=== PATIENT | female | born 1935 | race African-American/Black ===

== ENCOUNTER 2018-08-26 13:49 | Observation (INO) ==
[2018-08-26 17:57] LABS: BASO# 0.02 X1000 (0.0-0.2); BASO% 0.2 % (0.0-0.8); EOS% 0.9 % (0.0-10.0); HEMATOCRIT 45.9 % (37.0-47.0); IMM GRAN# 0.04 X1000 (0.0-0.04); IMM GRAN% 0.4 % (0.0-0.5); LYMPH# 1.89 X1000 (1.2-3.4); LYMPH% 16.8 % (20.5-51.1); MCH 30.2 PG (27-31); MCHC 32.7 g/dL (33-37); MCV 92.5 FL (81-99); MONO# 0.98 X1000 (0.11-0.59); MONO% 8.7 % (1.7-9.3); MPV 9.6 FL (7.4-10.4); NEUT# 8.21 X1000 (1.4-6.5); PLT 270 X1000 (130-400); RBC 4.96 XMIL (4.2-5.4); RDW 13.6 % (11.5-14.5); WBC 11.24 X1000 (4.8-10.8)
[2018-08-26 17:58] LABS: URINE SOURCE CLEAN CATCH
[2018-08-26 18:07] LABS: BILIRUBIN URINE NEGATIVE (NEGATIVE); BLOOD URINE TRACE (NEGATIVE); COLOR YELLOW; GLUCOSE URINE NEGATIVE (NEGATIVE); KETONE URINE NEGATIVE (NEGATIVE); LEUKOCYTES URINE LARGE (NEGATIVE); NITRITE URINE POSITIVE (NEGATIVE); PH URINE 5.5; PROTEIN URINE TRACE mg/dL (NEGATIVE); SP GRAVITY URINE 1.012; TURBIDITY URINE CLEAR (CLEAR); UR EPITHELIAL CELLS <10 /HPF (<10); URINE BACTERIA 4+ /HPF; URINE RBC <10 /HPF (<10); URINE WBC 20-40 /HPF (<10); UROBILINOGEN URINE NORMAL (NORMAL)
[2018-08-26 18:25] LABS: ALB/GLOB RATIO 1.2; ALBUMIN 3.9 g/dL (3.5-5.0); CALCIUM 9.3 mg/dL (8.8-10.2); CREATININE 1.6 mg/dL (0.5-0.9); POTASSIUM 4.4 mmol/L (3.5-5.1); TOTAL BILIRUBIN 0.66 mg/dL (0.20-1.00); TOTAL PROTEIN 7.1 g/dL (6.3-8.3)
--- NOTE | 2018-08-26 18:56 | PROVIDER DOCUMENTATION ---
This chart was entered by Renetta Martines Scribe, acting as scribe for Christopher Emerson MD. HPI-Abdominal Pain/GI Problem - General Source: patient - History of Present Illness-ABD Nature of Presenting Problems: Patient is a 83 year old female who presents with generalized abdominal pain that started last night. Denies nausea and vomiting. Abdominal Pain Onset Location: reports: generalized abdomen Pain Radiation: reports: no radiation Quality of Pain: reports: aching Severity in ED: reports: mild Onset/Duration: reports: last night Timing: reports: still present Activities at Onset: reports: light activity Modifying Factors: improves with: nothing Associated Symptoms: reports: denies symptoms Bruising or Bleeding Gums?: No Similar Symptoms Previously?: Yes Recently seen or treated by another doctor?: No <Christopher Emerson - Last Filed: 08/26/18 18:55> <Vero Arguello - Last Filed: 08/26/18 22:25> - General Chief Complaint: Abdominal Pain Stated Complaint: ABD PAIN Time Seen by Provider: 08/26/18 17:17 Allergies/Adverse Reactions: Patient Allergies Allergy/AdvReac Type Severity Reaction Status Date / Time pentazocine lactate * Allergy Severe AMS Verified 10/12/16 18:19 [From [facility]] Home Medications: Home Medication List Medication Instructions Recorded Confirmed Last Taken Type ATORVAstatin [Lipitor] 40 mg PO DAILY 05/09/13 08/26/18 08/29/16 21:00 History Aspirin [Ecotrin] 325 mg PO QAM 05/09/13 08/26/18 09/02/16 History Metoprolol Succinate [Toprol Xl] 75 mg PO QAM 05/09/13 08/26/18 09/05/16 08:22 History Amlodipine Besylate 5 mg PO DAILY 09/03/16 08/26/18 09/05/16 08:22 History Benazepril HCl 10 mg PO DAILY 08/26/18 08/26/18 Unknown History Bismuth Subsalicylate [Maalox] 525 mg PO DAILY 08/26/18 08/26/18 Unknown History Fluticasone 50 Mcg Nasal [place] 1 spray INTRANASAL DAILY 08/26/18 08/26/18 Unknown History [Flonase] Isosorbide Mononitrate E.r. [Imdur] 60 mg PO DAILY 08/26/18 08/26/18 Unknown History Levocetirizine Dihydrochloride 5 mg PO DAILY 08/26/18 08/26/18 Unknown History Montelukast Sodium [Singulair] 5 mg PO DAILY 08/26/18 08/26/18 Unknown History Prednisone [[place]] 5 mg PO DAILY 08/26/18 08/26/18 Unknown History Review of Systems - Adult - REVIEW OF SYSTEMS - ADULT Constitutional: reports: no symptoms reported. denies: chills, fever, fatique Eyes: reports: no symptoms reported Ears, Nose, Mouth & Throat: reports: no symptoms reported Cardiovascular: reports: no symptoms reported Respiratory: reports: no symptoms reported Gastrointestinal: reports: see HPI, abdominal pain (generalized). denies: diarrhea, nausea, vomiting Genitourinary: reports: no symptoms reported. denies: dysuria, hematuria, urinary retention Musculoskeletal: reports: no symptoms reported Integumentary: reports: no symptoms reported Neurological: reports: no symptoms reported Psychiatric: reports: no symptoms reported Endocrine: reports: no symptoms reported Hematologic/Lymphatic: reports: no symptoms reported Allergic/Immunologic: reports: no symptoms reported All Other Systems: Reviewed and Negative <Christopher Emerson - Last Filed: 08/26/18 18:55> Past History - Adult - PAST MEDICAL HISTORY-ADULT Review of Records: reports: Old Records Reviewed, Nursing Assessment Review, Medications Reviewed, Social history reviewed & non-contributory. Major Childhood Illnesses: reports: denies history Cardiovascular: reports: CAD, HTN, hyperlipidemia Respiratory: reports: denies history Gastrointestinal: reports: denies history Obstetrical/Gynecological: reports: denies history Genitourinary: reports: kidney disease Musculoskeletal: reports: denies history Neurological: reports: denies history Endocrine/Immune: reports: denies history Other Conditions: reports: other (gout ) - PRIOR SURGERIES/PROCEDURES Surgical/Procedure History: reports: orthopedic (extremity) - IMMUNIZATION STATUS Childhood Immunizations: See Nurse Assessment Flu Vaccine: See Nurse Assessment - FAMILY HISTORY Family History: reviewed, not pertinent - SOCIAL HISTORY Smoking: denies Substance Use: denies <Christopher Emerson - Last Filed: 08/26/18 18:55> Physical Exam-General - PHYSICAL EXAM-ADULT Initial Vital Signs Reviewed: Yes - CONSTITUTIONAL General Appearance: alert, no apparent distress. negative: slow to respond - HEAD, EARS, NOSE, MOUTH & THROAT HENMT: normocephalic/atraumatic, moist mucous membranes. negative: angioedema - RESPIRATORY Respiratory: chest non-tender, lungs clear, normal breath sounds. negative: crackles, stridor - CARDIOVASCULAR Cardiovascular: normal peripheral pulses, regular rate, rhythm. negative: tachycardia - GASTROINTESTINAL (ABDOMEN) Abdominal Exam: normal bowel sounds, soft, tenderness (diffuse), hernia (ventral wall hernia to RUQ). negative: guarding - MUSCULOSKELETAL Extremity: normal inspection. negative: deformity, erythema - SKIN Integumentary: normal color, normal turgor, warm/dry. negative: cyanosis, ecchymosis, erythema, jaundice - NEUROLOGIC Neurologic: grossly normal. negative: aphasia, facial droop - PSYCHIATRIC Psych/Mental Status: normal mood/affect, oriented x 3. negative: anxious <Christopher Emerson - Last Filed: 08/26/18 18:55> Progress - PLAN OF CARE/RESULTS Progress/Plan/Lab Results: Vital Signs - 8 hr 08/26/18 14:04 Temperature 97.9 F Pulse Rate 79 Respiratory Rate 18 Blood Pressure 142/77 O2 Sat by Pulse Oximetry 97 Orders Category Date Time Status CT ABD/PELVIS W/IV CONT ONLY [CT] Stat Exams 08/26/18 17:28 Ordered CBC WITH ELECTRONIC DIFF [HEME] Stat Lab 08/26/18 17:17 Uncollected CMP [COMPREHENSIVE METABOLIC PANEL] [CHEM] Stat Lab 08/26/18 17:17 Uncollected URINALYSIS W/POSS RFLX CULT [URINALYSIS] Stat Lab 08/26/18 17:17 Uncollected Result Diagrams: 08/26/18 17:50 08/26/18 17:50 - CHANGE OF SHIFT REPORT (ED Provider) 1 Report Given and Care Transferred to:: Dr Arguello Time of Transfer: 19:00 Items Pending: CT/MRI Results <Christopher Emerson - Last Filed: 08/26/18 18:55> - PLAN OF CARE/RESULTS Progress/Plan/Lab Results: Laboratory Results - last 24 hr 08/26/18 08/26/18 08/26/18 17:30 17:50 17:50 WBC 11.24 H RBC 4.96 Hgb 15.0 Hct 45.9 MCV 92.5 MCH 30.2 MCHC 32.7 L RDW Std Deviation 13.6 Plt Count 270 MPV 9.6 Immature Gran % (Auto) 0.4 Neut % (Auto) 73.0 Lymph % (Auto) 16.8 L [place] % (Auto) 8.7 Eos % (Auto) 0.9 Baso % (Auto) 0.2 Immature Gran # (Auto) 0.04 Neut # (Auto) 8.21 H Lymph # (Auto) 1.89 [place] # (Auto) 0.98 H Eos # (Auto) 0.10 Baso # (Auto) 0.02 Sodium 138 Potassium 4.4 Chloride 100 Carbon Dioxide 28 Anion Gap 10 BUN 23 H Creatinine 1.6 H Estimated GFR/1.73 m2 37 BUN/Creatinine Ratio 14 Glucose 90 Calculated Osmolality 279 Calcium 9.3 Total Bilirubin 0.66 AST 12 ALT 7 L Alkaline Phosphatase 109 H Total Protein 7.1 Albumin 3.9 Globulin 3.2 Albumin/Globulin Ratio 1.2 Urine Source CLEAN CATCH Urine Color YELLOW Urine Turbidity CLEAR Urine pH 5.5 Ur Specific [place] 1.012 Urine Protein TRACE A Ur Glucose (Stick) NEGATIVE Ur Ketones (Stick) NEGATIVE Urine Blood TRACE A Urine Nitrite POSITIVE A Urine Bilirubin NEGATIVE Urobilinogen Dipstick NORMAL Urine Leukocytes LARGE A Urine WBC (Auto) 20-40 A Urine RBC (Auto) <10 U Epithel Cells (Auto) <10 Urine Bacteria (Auto) 4+ Orders Category Date Time Status CT ABDOMEN/PELVIS W/O CONTRAST [CT] Stat Exams 08/26/18 18:49 Completed CBC WITH ELECTRONIC DIFF [HEME] Stat Lab 08/26/18 17:50 Completed CMP [COMPREHENSIVE METABOLIC PANEL] [CHEM] Stat Lab 08/26/18 17:50 Completed URINALYSIS W/POSS RFLX CULT [URINALYSIS] Stat Lab 08/26/18 17:30 Completed URINE CULTURE [RM] Routine Lab 08/26/18 18:34 Received Morphine Med 08/26/18 20:41 Discontinued 4 mg .ROUTE .STK-MED ONE Morphine Med 08/26/18 20:38 Discontinued 4 mg IV NOW ONE Ondansetron [Zofran] Med 08/26/18 20:41 Discontinued 4 mg .ROUTE .STK-MED ONE Ondansetron [Zofran] Med 08/26/18 20:38 Discontinued 4 mg IV NOW ONE Patient signed out to me pending CT scan. CT showing partial small bowel obstruction. No active vomiting. Spoke to Dr Venegas health information technologist for surgery, states patient can be DC home and followup with him outpatient or can be admitted to hospitalist and he will consult. If she is admitted if she is not vomiting no NGT is needed. Patient is not vomiting in the ED so held off NGT. Spoke to patient and family and they feel more comfortable being admitted. Spoke to Dr Constantino who accepted patient for admission. Further orders to be placed by [facility] team. Result Diagrams: 08/26/18 17:50 08/26/18 17:50 - CT/MRI 1 CT Study: Abdomen (EXAM: CT ABDOMEN/PELVIS W/O CONTRAST 08/26/2018 HISTORY: ABDOMINAL PAIN TECHNIQUE: This exam was performed using automated exposure control, adjustment of mA or kV according to patient size, and/or use of iterative reconstruction technique. COMMENT: The current study is compared with 05/28/2018. The visualized portions of the chest are unchanged in appearance. 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 There is a small hiatal hernia. The spleen is not enlarged. There is nephrolithiasis without evidence of hydronephrosis on the left. There is no evidence of right-sided hydronephrosis. The infrarenal abdominal aorta is slightly distended to a maximum AP diameter of 2.8 cm. This is not changed significantly. There is a ventral hernia containing small bowel with dilatation of the afferent loop. This was not the case on the previous study. There is a moderately large amount of stool in the colon. There is diverticulosis in the sigmoid colon without evidence of active diverticulitis. There is no evidence of free fluid. There has been previous hysterectomy. The ovaries are stable in appearance. There are some degenerative disc and facet changes present in the lumbar spine with apparent spinal stenosis at L3-4. There is no evidence of acute bony abnormality. IMPRESSION: Partial obstruction of the proximal small bowel due to ventral hernia. Electronically signed by Yuriy Colon 08/26/2018 7:11 PM) - CONSULTS/PCP/HOSPITALIST Notification #1 *Consult/PCP/Hospitalist*: Dr Venegas Time Discussed: 21:15 (Patient can either go home with outpatient followup with him or be admitted to hospitalist for OBS and he will consult. No NGT needed if not vomiting) Time Discussed: 21:30 (Accepted patient for admission) Reason/Comments: Dr Constantino Consult Disposition: Admit <Vero Arguello - Last Filed: 08/26/18 22:25> Departure - Departure Date of Disposition Decision: 08/26/18 <Christopher Emerson - Last Filed: 08/26/18 18:55> - Departure Time of Disposition Decision: 22:21 Certified Medical Emergency: Emergent - Critical Care Note This patient required my direct & personal management of CC.: No <Vero Arguello - Last Filed: 08/26/18 22:25> - Departure DIAGNOSIS: Small bowel obstruction UTI (urinary tract infection) Qualifiers: Urinary tract infection type: acute cystitis Disposition: ADMITTED INPATIENT 09 Condition: Stable Referrals and Follow-Ups: Claudia Vasques MD [Primary Care Provider] - Attestation - Physician/ HOLLIE Attestation The physician spent face to face time with patient:: Yes Advanced Practice Provider documentation review:: Supervising physician onsite and consulted in the evaluation and care of this patient. The physician did have a face to face encounter with the patient. <Christopher Emerson - Last Filed: 08/26/18 18:55> This chart was documented by the indicated scribe, (Renetta Martines Scribe) and accurately reflects the services I performed and decisions made by me, Christopher Emerson MD, as attested by the provider's signature.
--- NOTE | 2018-08-26 19:13 | Diag Imaging Result Doc PS360 ---
EXAM: CT ABDOMEN/PELVIS W/O CONTRAST 08/26/2018 HISTORY: ABDOMINAL PAIN TECHNIQUE: This exam was performed using automated exposure control, adjustment of mA or kV according to patient size, and/or use of iterative reconstruction technique. COMMENT: The current study is compared with 05/28/2018. The visualized portions of the chest are unchanged in appearance. 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 There is a small hiatal hernia. The spleen is not enlarged. There is nephrolithiasis without evidence of hydronephrosis on the left. There is no evidence of right-sided hydronephrosis. The infrarenal abdominal aorta is slightly distended to a maximum AP diameter of 2.8 cm. This is not changed significantly. There is a ventral hernia containing small bowel with dilatation of the afferent loop. This was not the case on the previous study. There is a moderately large amount of stool in the colon. There is diverticulosis in the sigmoid colon without evidence of active diverticulitis. There is no evidence of free fluid. There has been previous hysterectomy. The ovaries are stable in appearance. There are some degenerative disc and facet changes present in the lumbar spine with apparent spinal stenosis at L3-4. There is no evidence of acute bony abnormality. IMPRESSION: Partial obstruction of the proximal small bowel due to ventral hernia. Electronically signed by Yuriy Colon 08/26/2018 7:11 PM
[2018-08-26] MEDS ORDERED: ZOFRAN IV ONE (20:38)
[2018-08-26] MEDS ORDERED: MORPHINE IV ONE (20:38)
[2018-08-26] MEDS ORDERED: ZOFRAN ONE (20:41)
[2018-08-26] MEDS ORDERED: MORPHINE ONE (20:41)
[2018-08-26] MEDS ORDERED: DULCOLAX PR ONE (22:45)
--- NOTE | 2018-08-26 23:40 | HISTORY AND PHYSICAL ---
CHIEF COMPLAINT: Abdominal pain. HISTORY OF PRESENT ILLNESS: Ms. Borja is a very pleasant 83-year-old female who was alert and oriented times 3, unable to answer all questions. She developed abdominal pain generalized last night. Denied any nausea, vomiting. Stated she had not had a bowel movement in around a day and a half. She is usually very regular with bowel movements daily. She has a past medical history of coronary artery disease, hypertension, hyperlipidemia, gout, chronic kidney disease. CT scan was obtained in the emergency room and it does show partial small bowel obstruction. ER spoke with Dr. Venegas, who was log operations coordinator for Surgery. He stated that it was okay for them to discharge her home and follow up outpatient. However, the family was uncomfortable with that. She will be admitted in observation status for further evaluation and treatment. PAST MEDICAL HISTORY: See HPI. PREVIOUS SURGICAL HISTORY: Hernia repair, ovary removal, colonoscopy. SOCIAL HISTORY: She is single. Retired from [employer]. No alcohol or cigarette use. However, she does dip snuff daily. No illicit drugs. FAMILY HISTORY: Hypertension in parents and 1 daughter with fibromyalgia, an additional daughter who at age 49 from myocardial infarction who also had lupus. ALLERGY: Talwin. HOME MEDICATIONS: Aspirin 325 p.o. daily, atorvastatin 40 mg p.o. daily, metoprolol 75 mg p.o. q.a.m., amlodipine 5 mg p.o. daily, benazepril 10 mg p.o. daily, Maalox 525 mg p.o. daily, Flonase 50 mcg daily, Imdur 60 mg p.o. daily, Singulair 5 mg p.o. daily, prednisone 5 mg p.o. daily. REVIEW OF SYSTEMS: Fourteen point review of systems conducted with the patient. Pertinent positives listed above in HPI. All other systems reviewed and found to be negative. PHYSICAL EXAMINATION: VITAL SIGNS: Temperature 97.9, pulse 79, respirations 18, blood pressure 142/77, O2 saturation 97% on room air. GENERAL: Pleasant 83-year-old female lying in the ER stretcher, answers all questions appropriately. She is alert and oriented times 3. HEENT: Head is atraumatic, normocephalic. Pupils equal, round, reactive to light. Extraocular eye movement is intact. Sclerae are anicteric. Conjunctiva is pink. Oral mucosa is moist. NECK: Supple. No JVD. No thyromegaly. Trachea is midline. No cervical lymphadenopathy. CARDIAC: S1, S2 appreciated. No murmurs, gallops or rubs. LUNGS: Clear to auscultation bilaterally. No rhonchi, wheezes, rales. Symmetric rise and fall with respirations. ABDOMEN: Protuberant, soft, mildly distended. Reducible hernia noted on the right side of the abdomen. Bowel sounds hypoactive all 4 quadrants. EXTREMITIES: No clubbing, cyanosis or edema. Bilateral feet are cool to touch. One-plus pedal pulses. GENITOURINARY: No bladder distention. Patient voids. Otherwise deferred. NEUROLOGICAL: Alert and oriented times 3. No focal motor deficits. Otherwise nonfocal examination. DIAGNOSTIC DATA: CT of the abdomen shows a partial small bowel obstruction. LABORATORY DATA: WBC 11.24. Hemoglobin 15. Hematocrit 45.9. Platelet count 270. BUN 23. Creatinine 1.6. Urine is nitrite positive, leukocyte esterase positive, 20-40 WBCs, 4-plus bacteria. ASSESSMENT AND PLAN: 1. Partial small bowel obstruction. Consult Dr. Venegas. Normal saline IV overnight. We will give a suppository, reshoot a flat and upright x-ray tomorrow around noon. Patient is having no nausea or vomiting. No need for NG tube at this time. We will give morphine as needed for pain, Zofran as needed for nausea. 2. Urinary tract infection. One gram of Rocephin IV daily. 3. Hypertension. Continue home medication. 4. Hyperlipidemia. Continue home medication. 5. Chronic kidney disease stage 3. This is stable. Further recommendation per patient clinical course. Dictated by NADEEN Bonilla for Jcarlos Constantino MD cc: NADEEN Bonilla MD Lindsay Smith Independent exam and assessment done by me at bedside with MBA INTERN and discussed the above plan with him and patient. If abd. X ray films are inconclusive and patient still has not had a BM, consider doing a UGI w SBFT tomorrow. MTDD
[2018-08-27] MEDS ORDERED: ZOFRAN IV PRN (00:21)
[2018-08-27] MEDS ORDERED: NS 1,000 ML IV SCH (00:21)
[2018-08-27] MEDS: ROCEPHIN 1 GM in NS 50 ML IV SCH (01:19)
[2018-08-27] MEDS: LOVENOX SUBQ SCH (01:20)
[2018-08-27] MEDS: MORPHINE IV PRN ×3 (02:48→16:41)
[2018-08-27 07:14] LABS: CALCIUM 9.2 mg/dL (8.8-10.2); CREATININE 1.7 mg/dL (0.5-0.9); POTASSIUM 4.3 mmol/L (3.5-5.1)
[2018-08-27] MEDS ORDERED: PNEUMOVAX 23 IM ONE (07:43)
--- NOTE | 2018-08-27 08:20 | GENERAL SURGERY CONSULTATION ---
DATE: 08/27/2018 HISTORY OF PRESENT ILLNESS: Ms. Del Castillo is a pleasant, 83-year-old, female, who reports admission yesterday because of abdominal pain from a hernia. She says she has not eaten anything in the past 3 days. She denies nausea or vomiting, just complains about some abdominal pain. She does have a past history of coronary artery disease. She apparently has seen Dr. Kelley for this. PAST MEDICAL HISTORY: She has a history of hypertension, hyperlipidemia, gout, and some chronic renal insufficiency. MEDICATIONS: Her medications at home include aspirin, atorvastatin, metoprolol, amlodipine, benazepril, Maalox, Flonase, Imdur, Singulair, and prednisone. ALLERGIES: She has an allergy to [place]. PAST SURGICAL HISTORY: She has had a previous hysterectomy, a previous laparotomy for a bowel obstruction. She has had previous endoscopies. FAMILY HISTORY: Pertinent for hypertension, coronary artery disease, and lupus. SOCIAL HISTORY: She is single. She is retired. She denies alcohol or smoking. REVIEW OF SYSTEMS: Primarily related to her abdominal pain from a hernia. Denies other subsystem problems. PHYSICAL EXAMINATION: Vital Signs: She is afebrile. Heart rate 63, blood pressure 136/65. Neck: No cervical adenopathy. Lungs: Bilateral breath sounds. Heart: Regular rate and rhythm. Abdomen: Soft. A hernia is palpated. It is not reducible. It is mildly tender. Extremities: She does have pedal pulses. Neurologic: She is awake, alert, and oriented. LABORATORY DATA: White count was 11,000 yesterday. BUN 19, creatinine 1.7 today. Her urine was nitrite positive. ASSESSMENT: She appears to have an incarcerated epigastric hernia, now with some small bowel in it. It does not appear to be strangulated. We will allow her to have liquids today. If she does not tolerate them, then we will proceed with ventral hernia repair while she is here. If she does, then perhaps she can come back and schedule as an outpatient. Will follow along with serial abdominal exams. cc: Andrez Venegas MD
[2018-08-27] MEDS ORDERED: PREDNISONE PO SCH (09:00)
[2018-08-27] MEDS ORDERED: MAALOX PLUS LIQUID PO SCH (09:00)
[2018-08-27] MEDS: TOPROL XL PO SCH (09:40)
[2018-08-27] MEDS: LOTENSIN PO SCH (09:42)
[2018-08-27] MEDS: IMDUR PO SCH (09:42)
[2018-08-27] MEDS: ZYRTEC PO SCH (09:42)
[2018-08-27] MEDS: LIPITOR PO SCH (09:43)
[2018-08-27] MEDS: SINGULAIR PO SCH (09:43)
[2018-08-27] MEDS: ASPIRIN EC PO SCH (09:43)
[2018-08-27] MEDS: NORVASC PO SCH (09:44)
--- NOTE | 2018-08-27 12:07 | Diag Imaging Result Doc PS360 ---
EXAM: FLAT/UPRIGHT ABD/1 VIEW CHEST HISTORY: partial SBO TECHNIQUE: Flat and upright with chest, three views COMPARISON: 11/22/2016 FINDINGS: The lungs are well expanded and clear. The left hemidiaphragm is elevated similar to the prior exam. No cardiomegaly. No free air beneath the diaphragm. No bowel obstruction. The bowel loops are nondilated. No organomegaly. Mild scoliosis. IMPRESSION: Mild constipation, but no evidence of bowel obstruction. Electronically signed by Ubaldo Rivas 08/27/2018 12:04 PM
[2018-08-27] MEDS ORDERED: MAALOX PLUS LIQUID PO PRN (14:40)
[2018-08-27] MEDS: MIRALAX PO SCH ×2 (14:54→22:21)
[2018-08-27] MEDS: DULCOLAX PR SCH ×2 (14:55→22:21)
--- NOTE | 2018-08-27 17:25 | PROGRESS NOTE ---
DATE: 08/27/2018 INTERVAL HISTORY: Ms. Del Castillo was admitted for partial small bowel obstruction. She was given bisacodyl suppositories at nighttime. She did have a small bowel movement. She has been tolerating a liquid diet well. She denies any chest pain or shortness of breath. Abdominal pain has significantly decreased. She states that she has not been using prednisone and she wanted me to discontinue it. She states she has been having increasing nocturia recently, but no burning. VITAL SIGNS: Temperature 98.1 degrees, pulse 72, respiratory rate 18, blood pressure 120/60, saturating 96% room air. PHYSICAL EXAMINATION: General: Morbidly obese, not in any acute distress. HEENT: Oral cavity has some chicken broth, otherwise moist. Lungs: Air entry bilaterally equal. No wheeze, rhonchi, or crackles. Cardiovascular: S1, S2 normal. No murmur, rub, or gallop. Abdomen: Soft. There is a ventral hernia and multiple scars of previous laparotomy and hysterectomy. Her hernia is only mildly tender and it is about 10 cm below the xiphoid sternum. Active bowel sounds. Extremities: No lower extremity edema. Neurologic: She is alert oriented x3. Able to follow commands. Able to raise both upper and lower extremities. Input and output: The bowel movements have not been recorded. However, she tells me that she did have a bowel movement. LABORATORY: BMP suggestive of chronic kidney disease stage 3. TSH was within normal limits. She does have pyuria and urine culture is in the lab. X-RAY IMAGING: Today morning suggest mild constipation without any evidence of bowel obstruction. ASSESSMENT AND PLAN: 1. Partial small bowel obstruction in the setting of ventral hernia without any nausea or vomiting, now improving. Continue aggressive bowel regimen, clear liquid diet. Surgery on board. If she does not get better, she may need surgery. However, currently she is improving. Continue morphine as needed for abdominal pain. 2. Acute urinary tract infection, likely lower urinary tract infection. Continue intravenous ceftriaxone. Follow up with final urine culture results. 3. Others. History of coronary artery disease, managed medically. Continue home aspirin, atorvastatin, metoprolol. 4. Essential hypertension. Continue home benazepril, amlodipine. 5. Disposition. The patient remains inside the hospital as we await urine culture results, as well as resumption of her bowel activity. Plan of care discussed with the patient and her daughter at bedside. All of their questions have been answered. cc: Sina Odonnell MD
--- NOTE | 2018-08-27 20:18 | PROGRESS NOTE ---
DATE: 08/27/2018 INTERVAL HISTORY: She had a small bowel movement. She was admitted for partial small bowel obstruction. She has been tolerating clear liquid diet well. Patient's daughter is at bedside. Patient denies any new complaints. PHYSICAL EXAMINATION: Vital Signs: Temperature 98.7 degrees, pulse 65, respiratory rate 18, blood pressure 115/64, saturating 96% on room air. General: Morbidly obese, not in acute distress. Oral Cavity: Moist. Lungs: Air entry bilaterally equal. No wheeze, rhonchi, crackles. Heart: S1, S2 normal. No murmur or gallop. Abdomen: Soft, nontender. Ventral hernia palpable. Mild tenderness. Active bowel sounds. Extremities: No lower extremity edema. LABS: Suggestive of normal electrolytes with creatinine of 1.7 in chronic kidney disease stage 3 range. No microbiological data except urine culture which is gram-negative marya. ASSESSMENT: 1. Acute partial small bowel obstruction. 2. Acute cystitis due to gram-negative marya. 3. Essential hypertension. 4. History of coronary artery disease without any percutaneous intervention. 5. Chronic kidney disease stage 3. PLAN: 1. Continue clear liquid diet. 2. Intensify bowel regimen. 3. Surgery on board. 4. I will continue her home medications for benazepril, aspirin, atorvastatin, and amlodipine for essential hypertension. 5. I will continue intravenous ceftriaxone for urinary tract infection. 6. I will await final urine culture results and resumption of her bowel movements. Based on that, I will consider disposition. 7. Plan of care discussed with the patient and her daughter at bedside. cc: Sina Odonnell MD
[2018-08-28] MEDS: MORPHINE IV PRN ×2 (00:39→09:05)
[2018-08-28] MEDS: LOVENOX SUBQ SCH (00:40)
[2018-08-28] MEDS: ROCEPHIN 1 GM in NS 50 ML IV SCH (00:40)
[2018-08-28] MEDS: ASPIRIN EC PO SCH (07:59)
[2018-08-28] MEDS: IMDUR PO SCH (07:59)
[2018-08-28] MEDS: NORVASC PO SCH (07:59)
[2018-08-28] MEDS: MIRALAX PO SCH (07:59)
[2018-08-28] MEDS: DULCOLAX PR SCH (07:59)
[2018-08-28] MEDS: TOPROL XL PO SCH (07:59)
[2018-08-28] MEDS: LOTENSIN PO SCH (08:00)
[2018-08-28] MEDS: LIPITOR PO SCH (08:00)
[2018-08-28] MEDS: ZYRTEC PO SCH (08:00)
[2018-08-28] MEDS: SINGULAIR PO SCH (08:00)
[2018-08-28 12:16] VITALS: BP 120/58
--- NOTE | 2018-08-28 20:39 | GENERAL SURGERY PROGRESS NOTE ---
DATE: 08/28/2018 SUBJECTIVE: Ms. Del Castillo is taking liquids okay. Her bowels had moved. I think it is completely appropriate to allow her to be discharged. She is welcome to follow up with me in the office and we can discuss further ventral hernia repair. She understands and agrees. cc: Andrez Venegas MD
--- NOTE | 2018-08-29 13:41 | DISCHARGE SUMMARY ---
ADMISSION DATE: 08/26/2018 DISCHARGE DATE: 08/28/2018 DISCHARGE DISPOSITION: Home with family. DISCHARGE CONDITION: Alert, oriented x3. The patient has been tolerating liquid diet. Has not had any nausea or vomiting. Has had multiple bowel movements. Her abdominal pain has significantly decreased. DISCHARGE INSTRUCTIONS: She should continue stool softeners to have 2 soft bowel movements every day. She should complete treatment of urinary tract infection. She should schedule an appointment with Dr. Venegas in 7 days and discuss about elective ventral hernia repair surgery. DISCHARGE DIAGNOSES: 1. Acute partial small bowel obstruction due to incarcerated ventral hernia. 2. Acute cystitis due to Klebsiella pneumoniae. 3. Essential hypertension. 4. Constipation. OTHER DIAGNOSES: 1. History of coronary artery disease without any percutaneous intervention. 2. Chronic kidney disease stage 3. 3. Essential hypertension. 4. Morbid obesity. 5. Hyperlipidemia. DISCHARGE MEDICATIONS: Amlodipine 5 mg daily, benazepril 10 mg daily, aspirin 325 mg every morning, fluticasone nasal spray 1 spray daily, isosorbide mononitrate 60 mg extended release daily, levocetirizine 5 mg daily, atorvastatin 40 mg daily, montelukast 5 mg daily, metoprolol succinate 75 mg every morning time, cephalexin 250 mg every 6 hours, 20 capsules have been prescribed, tramadol 50 mg every 8 hours, 15 tablets have been prescribed for abdominal pain. Bisacodyl 10 mg per rectal b.i.d., 30 suppositories have been prescribed, MiraLAX 17 g p.o. b.i.d. 30 powders have been prescribed. VITALS: At the time of discharge, temperature 97.8 degrees, pulse 62, respiratory rate 18, blood pressure 170/70. She is saturating 99% on room air. PHYSICAL EXAMINATION: Morbidly obese, not in acute distress. Oral cavity is moist. Air intake bilaterally equal. No wheeze, rhonchi, or crackles. S1, S2 normal. No murmur or gallop. Abdomen: Soft. She has a ventral hernia, only mildly tender. Otherwise, active bowel sounds. No lower extremity edema. She is alert and oriented x3. Nonfocal examination. SIGNIFICANT LABS: During hospital. WBC 11,000, hemoglobin 15, platelet 270,000. At the time of discharge, sodium 140, potassium 4.3, BUN 19, creatinine 1.7. TSH 2.6.. Urine culture was growing Klebsiella pneumoniae which was sensitive to cephalexin. IMAGING: Abdomen pelvis CT on admission had partial obstruction of proximal small bowel due to ventral hernia. Abdominal x-ray the next day had mild constipation without any evidence of bowel obstruction. HOSPITAL COURSE SUMMARY: Ms. Del Castillo is an 83-year-old woman with past medical history of obesity, who came in on 08/25/2018 with chief complaints of abdominal pain and not having bowel movement for approximately 2 days. In the emergency room, CT scan of the abdomen and pelvis had suggested partial small bowel obstruction because of incarcerated ventral hernia. She also had abdominal tenderness. Surgery was consulted and currently had recommended liquid diet and bowel regimen. On bowel regimen and liquid diet, the patient has had multiple bowel movements. Her abdominal pain has decreased and she was tolerating liquid diet well. It was decided to discharge the patient on bowel regimen to have outpatient surgery followup for elective repair. The patient was also complaining of nocturia during hospital admission and urinalysis of her was suggestive of a Klebsiella urinary tract infection. She was discharged on cephalexin. Detailed discharge instructions were provided to the patient. More than 30 minutes were spent in discharging this patient. cc: Sina Odonnell MD MTDD
== END 2018-08-28 12:40 | disposition home or self-care (01) ==
LOC: ED 13:49 → INTOOBSV 23:39 → SUATTDRO 23:39 → 4N 23:39
PROVIDERS: ATTEND Internal Medicine
CPT/HCPCS: 74022; 74176; 80048; 80053; 81001; 84443; 85025; 87077; 87088; 87186; A9270; J0696; J1650; J2270; J2405; J7030; J7506; J7512

== ENCOUNTER 2018-10-20 05:39 | Day surgery (SDC) ==
[2018-10-12 11:08] LABS: HEMATOCRIT 44.2 % (37.0-47.0); HEMOGLOBIN 14.5 g/dL (12.0-16.0); MCH 30.5 PG (27-31); MCHC 32.8 g/dL (33-37); MCV 93.1 FL (81-99); MPV 9.6 FL (7.4-10.4); RBC 4.75 XMIL (4.2-5.4); RDW 13.6 % (11.5-14.5); WBC 8.93 X1000 (4.8-10.8)
--- NOTE | 2018-10-12 11:16 | EKG Report ---
Test Performed on : 10/12/2018 10:18:57 AM Test Reason : PAT Blood Pressure : / mmHG Vent. Rate : 066 BPM Atrial Rate : 066 BPM P-R Int : 184 ms QRS Dur : 110 ms QT Int : 412 ms P-R-T Axes : 056 -31 094 degrees QTc Int : 431 ms Normal sinus rhythm. Left axis deviation T wave abnormality, consider lateral ischemia Abnormal ECG When compared with ECG of 03-SEP-2016 14:49, No significant change was found Confirmed by Malcom Noyola MD ([id number]) on 10/13/2018 8:30:28 AM
[2018-10-12 11:23] LABS: CALCIUM 9.5 mg/dL (8.8-10.2); CREATININE 1.6 mg/dL (0.5-0.9); POTASSIUM 4.3 mmol/L (3.5-5.1)
[2018-10-20] MEDS ORDERED: KEFZOL 1 GM/D5W 1 GM/50 ML IVPB ONE (06:10)
[2018-10-20] MEDS ORDERED: LR 1,000 ML ONE (06:10)
[2018-10-20] MEDS ORDERED: XYLOCAINE-MPF 2% ONE (06:43)
[2018-10-20] MEDS ORDERED: DIPRIVAN 1% ONE (06:43)
[2018-10-20] MEDS ORDERED: SENSORCAINE 0.25%/EPI 1:200,000 ONE (06:47)
[2018-10-20] MEDS ORDERED: KEFZOL ONE (06:47)
[2018-10-20] MEDS ORDERED: ROBINUL ONE (07:06)
[2018-10-20] MEDS ORDERED: QUELICIN (DOSE) ONE (07:06)
[2018-10-20] MEDS ORDERED: SODIUM CHLORIDE 0.9% ONE ×2 (07:12)
[2018-10-20] MEDS ORDERED: ZEMURON ONE (07:15)
[2018-10-20] MEDS ORDERED: BRIDION ONE (07:43)
[2018-10-20] MEDS ORDERED: ZOFRAN ONE (07:53)
[2018-10-20] MEDS ORDERED: OFIRMEV 1000 MG/ISOTONIC SOLN 1,000 MG/100 ML BOTTLE ONE (07:55)
[2018-10-20] MEDS: MORPHINE ONE ×3 (08:16→08:25)
[2018-10-20] MEDS ORDERED: NORCO-10 ONE (08:34)
--- NOTE | 2018-10-20 09:13 | OPERATIVE NOTE ---
PROCEDURE DATE: 10/20/2018 PROCEDURE PERFORMED: Repair of ventral incisional hernia using a Ventrio ST hernia patch (8 x 12 cm). SURGEON: Andrez Venegas MD. HYDROGENATION STILL OPERATOR: Sandi Shields RN PREOPERATIVE DIAGNOSIS: Ventral incisional hernia. POSTOPERATIVE DIAGNOSIS: Ventral incisional hernia. DESCRIPTION OF PROCEDURE: Satisfactory general endotracheal anesthesia received. The abdomen was prepped and draped in a sterile fashion. An [place] drape was used. We made a longitudinal incision in the area of the old scar, and we carried it around the umbilicus. We dissected down to the hernia. We dissected around the hernia circumferentially and found them to have one major defect with a couple of small defects in the inferior caudad end. We combined these into one defect measuring about 5 x 3 cm. We dissected the contents away from the back of the anterior abdominal wall for a few cm so that we could insert a mesh inside the defect, and have it as an underlay. We chose an 8 x [address] hernia patch, and it fit underneath the abdominal wall nicely. We then circumferentially placed 2-0 Prolene stitches from the posterior abdominal wall to the ring around the periphery of the hernia of the mesh. We did this interrupted until we had circumferentially placed stitches. We then secured the stitches, and the hernia mesh was attached to the posterior abdominal wall nicely. This then allowed us to actually close what tissue was present in the midline with 0 running Polysorb stitch to cover the mesh anteriorly. We placed some 3-0 Polysorb's interrupted in the subcutaneous tissue. We injected 0.25 Marcaine with epinephrine circumferentially for local pain relief, and then closed the skin with aleisha. A sterile island dressing was applied. The patient was also surrounded with a binder. She tolerated it well, and was sent to the recovery room in satisfactory condition. cc: Andrez Venegas MD
[2018-10-20] MEDS ORDERED: ZOFRAN IV PRN (09:36)
[2018-10-20] MEDS: NORCO-10 PO PRN ×2 (12:00→16:30)
[2018-10-20] MEDS: NORVASC PO SCH (14:45)
[2018-10-20 16:55] LABS: URINE SOURCE CLEAN CATCH
[2018-10-20 17:06] LABS: BILIRUBIN URINE NEGATIVE (NEGATIVE); BLOOD URINE NEGATIVE (NEGATIVE); COLOR YELLOW; GLUCOSE URINE NEGATIVE (NEGATIVE); KETONE URINE NEGATIVE (NEGATIVE); LEUKOCYTES URINE NEGATIVE (NEGATIVE); NITRITE URINE NEGATIVE (NEGATIVE); PH URINE 5.5; PROTEIN URINE TRACE mg/dL (NEGATIVE); SP GRAVITY URINE 1.014; TURBIDITY URINE CLEAR (CLEAR); UR EPITHELIAL CELLS <10 /HPF (<10); URINE BACTERIA NEGATIVE /HPF; URINE RBC <10 /HPF (<10); URINE WBC <10 /HPF (<10); UROBILINOGEN URINE NORMAL (NORMAL)
[2018-10-20] MEDS: IMDUR PO SCH (20:51)
[2018-10-20] MEDS ORDERED: LIPITOR PO SCH (21:00)
[2018-10-21] MEDS: NORCO-10 PO PRN (02:19)
[2018-10-21] MEDS ORDERED: TOPROL XL PO SCH (09:00)
--- NOTE | 2018-10-21 09:10 | GENERAL SURGERY PROGRESS NOTE ---
DATE: 10/21/2018 Ms. Del Castillo is doing generally well this morning. She says she does not feel well, but she is afebrile with stable hemodynamics and she is asking for real food to eat. Her bandage is dry. PLAN: Will be to advance her diet this morning and hopefully discharge her this afternoon later. She understands this. cc: Andrez Venegas MD
[2018-10-21] MEDS: NORVASC PO SCH (09:47)
[2018-10-21] MEDS: IMDUR PO SCH (09:47)
[2018-10-21 16:53] VITALS: BP 145/76
== END 2018-10-21 17:10 | disposition home or self-care (01) ==
LOC: OR 05:39 → 4N 05:39 → OR 10-21 17:10
PROVIDERS: ATTEND Surgery